=== PATIENT | male | born 1980 | race Caucasian/White ===

== ENCOUNTER 2020-11-03 14:12 | Outpatient (RCR) | payer BC, SELFPAY | END 2020-12-27 23:59 | LOC: IMMUN 14:12 | PROVIDERS: Referring Provider Family Medicine; Visit Provider Family Medicine | DX: Z23 Encounter for immunization (principal) | CPT/HCPCS: 0001A; 0002A; 91300 ==

== ENCOUNTER 2022-01-28 09:41 | Emergency (ER) | payer BC, SELFPAY ==
[2022-01-28 09:42] VITALS: BP 142/75; PULSE 97; RESP 18; TEMP 36.6; O2SAT 98; BMI 28.7
[2022-01-28] MEDS: Lidocaine 1% (20 ml mdv) 20 ML Vial INFILT (09:57)
--- NOTE | 2022-01-28 10:33 | EX.ED.DYSGE1 ---
HPI History of Present Illness Chief Complaint: Wound Informant: patient Narrative Narrative: 41-year-old male has a fishhook in his left distal forearm. Unable to remove it himself he came to emergency. PFSH PFSH Medical History no medical history Home Medications NK 01/28/22 [History Last Taken Unknown] Allergy/AdvReac Type Severity Reaction Status Date / Time No Known Allergies Allergy Verified 01/28/22 09:44 Surgical History no surgical history Social History (Updated 01/28/22 @ 10:[address] Andres Cummings, DO) Smoking Status: Never smoker substance use type: does not use ROS ROS ED Constitutional Constitutional ED: Denies chills or weight loss Eyes Eyes: Denies change in vision or diplopia ENT ENT ED: Denies ear pain, rhinorrhea or sore throat Cardiovascular Cardiovascular: Denies chest pain, orthopnea, palpitations or racing heartbeat Respiratory/Chest Respiratory/Chest: Denies cough, dyspnea or orthopnea Gastrointestinal Gastrointestinal: Denies abdominal pain, diarrhea, nausea or vomiting Genitourinary Genitourinary ED: Denies dysuria, hematuria or urinary frequency Musculoskeletal Musculoskeletal: Denies arthralgias or myalgias Integumentary Reports other Details: See history of present illness ; Denies abscess or rash Neurologic Neurologic: Denies headache(s) or weakness Psychiatric Psychiatric: Denies anxiety, depression, suicidal ideation or suicidal thoughts Endocrine Endocrinology: Denies polydipsia, polyphagia or polyuria Allergic/Immunologic Allergic/Immunologic ED: Denies mouth swelling, tongue swelling or urticaria EXAM Physical Exam Const Vital Signs: 01/28/22 09:42 Temperature 97.8 F Temperature Source Temporal Pulse Rate 97 Respiratory Rate 18 Blood Pressure 142/75 H Blood Pressure Mean 97 Pulse Ox 98 Oxygen Delivery Method Room Air Positive well nourished and well developed General Appearance ED: well developed HEENT Reports normocephalic, head/scalp atraumatic and moist mucous membranes Eyes PERRL and EOMs intact bilaterally Neck no lymphadenopathy, supple and no JVD Resp normal respiratory effort and clear to auscultation bilaterally Cardio regular rate, regular rhythm and no murmurs GI normal to inspection, nondistended, normoactive bowel sounds and non-tender Palpation: soft Back/Spine no CVA tenderness and normal ROM Extremity normal to inspection Extremity Narrative: There is a 3 barbed fishing lower with one of the barbs in the distal end of the left thumb. No active bleeding. General Extremety ED: Negative for edema General Extremity: Negative for edema Neuro oriented x3 and CN's II-XII intact bilaterally Sensorium / Orientation: alert Motor Exam: strength 5/5 throughout Psych mental status grossly normal Mood & Affect: Negative for depressed or tearful Skin no rashes or lesions noted and no wounds MDM MDM MDM Narrative Medical decision making narrative: The finger was digitally blocked using 1% lidocaine. A small incision was made with an 11 blade along the guanako. The trouble was then grasped with pliers and easily removed. Wound care discussed with patient return if worsening or concerns Discharge Plan Triage Chief Complaint: Wound ED Provider: Andres Cummings Dx/Rx/DC Orders Clinical Impression: [place] injury to finger Instructions: ED Fish Hook Removal Prescriptions: No Action NK Primary Care Provider: Care Physician,No Primary Referrals: Care Physician,No Primary [Primary Care Provider] - Disposition Disposition: Home, Self Care
[2022-01-28] MEDS: Diphth,Pertuss(Acell),Tet Vac 0.5 ML Vial IM (10:58)
== END 2022-01-28 11:21 | disposition home or self-care (01) ==
PROVIDERS: Emergency Provider Emergency Medicine; Visit Provider Emergency Medicine
DX: S69.82XA Other specified injuries of left wrist, hand and finger(s), initial encounter (principal); Z18.10 Retained metal fragments, unspecified; Z23 Encounter for immunization; X58.XXXA Exposure to other specified factors, initial encounter; Y93.89 Activity, other specified
CPT/HCPCS: 10120; 90471; 90715; 99283

== ENCOUNTER → 2025-06-04 | Outpatient (CLI) | payer BC, SELFPAY ==
--- NOTE | 2025-06-04 13:46 | VDLE_ITS ---
Reason For Study Reason For Study: LLE Pain Procedure LEFT This is a venous duplex using B-mode, color flow and GSV is normal. spectral Doppler. CFV is compressible, spontaneous, phasic, competent, Exam performed in department. and demonstrates normal augmentation. The exam was diagnostic. FV is compressible, spontaneous, phasic, competent and A preliminary report was called and/or faxed to demonstrates normal augmentation. [facility] POP V is compressible, spontaneous, phasic, competent and demonstrates normal augmentation. T/P Trunk is compressible. PTV is compressible. LT PerV is compressible. Nonvascularized anechoic area noted between muscle fascia at Lt mid medial calf. VL/Venous Duplex US, Unilateral Interpretation Summary Deep veins of the left lower extremity are patent and compressible segmentally. There is no evidence of left lower extremity deep vein thrombosis. Valvular competence appears intact within the p roximal deep venous system on the left . The left great saphenous vein appears patent and compressible segmentally. A no n-vascular, anechoic area is noted in the left medial calf. This may represent a hematoma or seroma. Clinical correlation is advised. Ordering Physician: Marlen Aguirre Referring Physician: N/A Performed By: Polo Jamil RVT
--- OUTSIDE RECORDS SUMMARY | 2025-06-04 15:56 | XMS RPT_ITS | CCD ---
Author Organization [facility] [employer] [facility] Problems Problem Classification Problem Date Documented Da te Episodic/Chronic Other injuries and conditions due to external causes (1 source) Injury of finger; Translations: [Unspecified injury of unspecified wrist, hand and finger(s), initial encounter] Episodic Results Test Name Value Interpretation Reference Range Facil ity Emergency Department Summary on 01-28-2022 Emergency Department Summary [facility] Medical Records Department [address] [place] [address] Emergency Department Summary 01/28/22 MR#: [id number] Acct: [id number] Name: KATIE MCALLISTER Rep #: [id number] : 1980 41 From: Andres Cummings DO PCP: Care Physician,No Primary Status:DEP ER Location: ED HPI History of Present Illness Chief Complaint: Wound Informant: patient Narrative Narrative: 41-year-old male has a fishhook in his left distal forearm. Unable to remove it himself he came to emergency. PFSH PFSH Medical History no medical history Home Medications NK 01/28/22 [History Last Taken Unknown] Allergy/AdvReac Type Severity Reaction Status Date / Time No Known Allergies Allergy Verified 01/28/22 09:44 Surgical History no surgical history Social History (Updated 01/28/22 @ 10:[address] Andres Cummings, ) Smoking Status: Never smoker substance use type: does not use ROS ROS ED Constitutional Constitutional ED: Denies chills or weight loss Eyes Eyes: Denies change in vision or diplopia ENT ENT ED: Denies ear pain, rhinorrhea or sore throat Cardiovascular Cardiovascular: Denies chest pain, orthopnea, palpitations or racing heartbeat Respiratory/Chest Respiratory/Chest: Denies cough, dyspnea or orthopnea Gastrointestinal Gastrointestinal: Denies abdominal pain, diarrhea, nausea or vomiting Genitourinary Genitourinary ED: Denies dysuria, hematuria or urinary frequency Musculoskeletal Musculoskeletal: Denies arthralgias or myalgias Integumentary Reports other Details: See history of present illness ; Denies abscess or rash Neurologic Neurologic: Denies headache(s) or weakness Psychiatric Psychiatric: Denies anxiety, depression, suicidal ideation or suicidal thoughts Endocrine Endocrinology: Denies polydipsia, polyphagia or polyuria Allergic/Immunologic Allergic/Immunologic ED: Denies mouth swelling, tongue swelling or urticaria EXAM Physical Exam Const Vital Signs: 01/28/22 09:42 Temperature 97.8 F Temperature Source Temporal Pulse Rate 97 Respiratory Rate 18 Blood Pressure 142/75 H Blood Pressure Mean 97 Pulse Ox 98 Oxygen Delivery Method Room Air Positive well nourished and well developed General Appearance ED: well developed HEENT Reports normocephalic, head/scalp atraumatic and moist mucous membranes Eyes PERRL and EOMs intact bilaterally Neck no lymphadenopathy, supple and no JVD Resp normal respiratory effort and clear to auscultation bilaterally Cardio regular rate, regular rhythm and no murmurs GI normal to inspection, nondistended, normoactive bowel sounds and non-tender Palpation: soft Back/Spine no CVA tenderness and normal ROM Extremity normal to inspection Extremity Narrative: There is a 3 barbed fishing lower with one of the barbs in the distal end of the left thumb. No active bleeding. General Extremety ED: Negative for edema General Extremity: Negative for edema Neuro oriented x3 and CN's II-XII intact bilaterally Sensorium / Orientation: alert Motor Exam: strength 5/5 throughout Psych mental status grossly normal Mood Affect: Negative for depressed or tearful Skin no rashes or lesions noted and no wounds MDM MDM MDM Narrative Medical decision making narrative: The finger was digitally blocked using 1% lidocaine. A small incision was made with an 11 blade along the guanako. The trouble was then grasped with pliers and easily removed. Wound care discussed with patient return if worsening or concerns Discharge Plan Triage Chief Complaint: Wound ED Provider: Andres Cummings Dx/Rx/DC Orders Clinical Impression: [place] injury to finger Instructions: ED Fish Hook Removal Prescriptions: No Action NK Primary Care Provider: Care Physician,No Primary Referrals: Care Physician,No Primary [Primary Care Provider] - Disposition Disposition: Home, Self Care What to do if you have Problems For any increased pain, shortness of breath, bleeding, nausea or vomiting, chest pain, or any unexpected problems, contact your Primary Care Provider. Call [facility] ([phone]) or report to the closest Emergency Room. Call 911 if necessary. 01/28/22 1510 Cosigner Signature (if applicable): CC: No Primary Care Physician Signed Normal [facility] Vital Signs Date Time Vital Sign Value Performing Clinician Veronikai jairo 01-28-2022 09:42-0400 Body height 177.8 cm [facility] Work Phone: 01-28-2022 09:42-0400 Body mass index (BMI) [Ratio] 28.7 kg/m2 [facility] Work Phone: 01-28-2022 09:42-0400 Body temperature 97.8 [degF] [facility] Work Phone: 01-28-2022 09:42-0400 Body weight 90.71 kg [facility] Work Phone: 01-28-2022 09:42-0400 Diastolic blood pressure 75 mm[Hg] [facility] Work Phone: 01-28-2022 09:42-0400 Heart rate 97 /min [facility] Work Phone: 01-28-2022 09:42-0400 Respiratory rate 18 /min [facility] Work Phone: 01-28-2022 09:42-0400 SaO2% (BldA) [Mass fraction] 98 % [facility] Work Phone: 01-28-2022 09:42-0400 Systolic blood pressure 142 mm[Hg] [facility] Work Phone: Encounters Encounter Date Encounter Type Care Provider Facility Start: 01-28-2022 End: 01-28-2022 Emergency department patient visit [facility]-Emergency Department Plan of Treatment Date Care Activity Detail Author Patient Education ED Fish Hook Removal [facility] Work Phone: Patient referral [facility] Work Phone: Immunizations Immunization Date Immunization Notes Care Provider Zheng lyn 01-28-2022 tetanus toxoid, redu edison diphtheria toxoid, and acellular pertussis vaccine, adsorbed [facility] Work Phone: Payers Date Payer Category Payer Policy ID Self-pay [employer]ANCE [id number] Unknown [employer] [id number] 201 [id number] Social History Date Type Detail Facility Start: 01-28-2022 Tobacco smoking stat us [facility] Unknown if ever smoked [facility] Work Phone: Start: 1980 Sex Assigned At Male [facility] Work Phone: Evaluation note Note Date & Type Note Facility Evaluation note No assessment information availa ble [facility] Work Phone: Chief Complaint and Reason for Visit Chief Complaint FISHING HOOK IN FING ER Advance Directives No Advanced Directives Records Found Advance Directive Response Recorded Date/ Time Living Will No January 28, 2022 9:51am Power of Baked Goods Stock Clerk No January 28 9:51am Summary Purpose Family History No Family History Records Found Additional Source Comments Goals (unrecognized section and content) Goals may be documented in a n alternate section (unrecognized sect ion and content) No Status Records Found INFORMATION SOURCE (unrecogn ized section and content) DATE CREATED AUTHOR 02/06/2022 [facility] FOR RECORDS PERTAINING TO PATIENTS WHO ARE OR HAVE BEEN ENROLLED IN A CHEMICAL DEPENDENCY/SUBSTANCEABUSE PROGRAM, SOME INFORMATION MAY BE OMITTED. This clinical summary was aggregated from multiple sources. Caution should be exercised in using it in the provision of clinical care. This summary normalizes information from multiple sources, and as a consequence, information in this document may materially change the coding, format and clinical context of patient data. In addition, data may be omitted in some cases. CLINICAL DECISIONS SHOULD BE BASED ON THE PRIMARY CLINICAL RECORDS. [employer] [facility]. provides no warranty or guarantee of the accuracy or completeness of information in this document.
== END | disposition home or self-care (01) ==
LOC: CVS 13:41
DX: M79.662 Pain in left lower leg (principal)
CPT/HCPCS: 93971